=== PATIENT | male | born 1935 | race Caucasian/White ===

== ENCOUNTER 2017-12-23 12:12 | Emergency (ER) | payer MEDICARE ==
[~2017-12-23] VITALS: Ht 172.7 cm; Wt 79.5 kg
[2017-12-23 12:23] VITALS: BP 144/90
== END 2017-12-23 13:28 | disposition home or self-care (01) ==
LOC: EMS 12:13
DX: R03.0 Elevated blood-pressure reading, without diagnosis of hypertension (principal); R51 Headache